=== PATIENT | male | born 1950 | race Caucasian/White ===

== ENCOUNTER 2016-09-15 08:36 | Day surgery (SDC) | payer MEDICARE, OTHER ==
[~2016-09-15] VITALS: Ht 180.3 cm; Wt 83.5 kg
[~2016-09-15 08:36] MED LIST: 0.9% Sodium Chloride 1,000 ML IV SCH; ASPI-973 PO; CHOL10008 PO; FLUT16SP NS; HYG25 PO; LISI40TA PO; METOPROLOL PO; MULT-1018 PO; Sodium Chloride LOK Flush 10 mL Syringe IV PRN; [UNRECOGNIZED DRUG - OTHER] PO; fentaNYL-PF 50 mCg/mL 2 mL Inj IVPUSH PRN
[2016-09-15 09:01] VITALS: BP 150/80; PULSE 51; RESP 16; O2SAT 98
[2016-09-15] MEDS ORDERED: METO-272 PO (09:06)
[2016-09-15 09:55] VITALS: BP 118/68; PULSE 45; O2SAT 95
[2016-09-15 10:00] VITALS: BP 115/67; PULSE 47; O2SAT 95
[2016-09-15 10:13] VITALS: BP 111/65; PULSE 67; O2SAT 97
--- NOTE | 2016-09-15 11:00 | ENDO ---
[address] [address] ENDOSCOPY PROCEDURE PATIENT: MATTHIEU MARLOW : 1950 MR#: [id number] ADMIT: 09/15/2016 JOB ID: [id number] PROCEDURE: Colonoscopy. INDICATION: Screening. ANESTHESIA: Patient's ASA classification is two. Mallampati score is two. MEDICATIONS: 1. Versed 3 mg. 2. Fentanyl 75 mcg. INSTRUMENT USED: PCF H 180 AL. PREPARATION QUALITY: Fair. PROCEDURE DETAILS: After informed consent was obtained, the patient was brought into the GI suite, where he was placed on oxygen via nasal cannula and monitored with continuous pulse oximeter, telemetry, and blood pressure monitoring. A time-out was performed; then, he was placed in the left lateral decubitus position and medications were administered for sedation. Digital rectal exam with palpation of the prostate was performed, which was unremarkable. The colonoscope was then inserted into the rectum, advanced under direct visualization to the cecum, which was identified by the presence of the ileocecal valve and appendiceal orifice. Once the cecum was reached, the colonoscope was withdrawn back to the rectum as the mucosa and lumen were examined. In the rectum, retroflexion was performed. Following retroflexion, the remaining air in the rectum was suctioned and the procedure was completed. FINDINGS: 1. In the sigmoid colon there was a diminutive polyp that was removed with cold biopsy forceps. 2. Retroflexed views in the rectum revealed a single prominent anal papillae. RECOMMENDATIONS: Repeat colonoscopy pending polyp pathology results. COMPLICATIONS: None. ESTIMATED BLOOD LOSS: Less than 5 mL.
--- NOTE | 2016-09-18 10:42 | PATH ---
SURGICAL PATHOLOGY Attending Physician:Magalys Serrato CASE STATUS: Signed Out PATIENT NAME: MATTHIEU MARLOW PID: [id number] : 1950 DATE COLLECTED:09/15/2016 16:24 SPECIMEN: Colon, Biopsy CLINICAL HISTORY: A: SIGMOID POLYP X1 FINAL DIAGNOSIS: 1.SIGMOID COLON POLYP: HYPERPLASTIC POLYP. ICD10 CODE D12.6 GROSS DESCRIPTION: The specimen is received in one formalin filled container labeled with the patient's name, sublabeled "sigmoid polyp X1" and consists of 2 portions of tissue which aggregate to 0.3 x 0.3 x 0.3 CM. The specimen is entirely submitted in one cassette. 09/15/2016 DAC MICRO DESCRIPTION: See diagnosis. ICD-9 CODES: CPT CODES: 1: 28349 Electronically Signed Out Abdirahman Emmanuel MD [facility] [address], [place] [address] Technical component performed at [facility], [facility] [address], [address]
== END 2016-09-15 23:59 | disposition home or self-care (01) ==
LOC: END 08:36
PROVIDERS: ATTEND Internal Medicine Gastroenterology
DX: Z12.11 Encounter for screening for malignant neoplasm of colon (principal); D12.5 Benign neoplasm of sigmoid colon; K62.89 Other specified diseases of anus and rectum; I10 Essential (primary) hypertension; R73.03 Prediabetes
CPT/HCPCS: 45380; 88305; J2250; J7030